=== PATIENT | male | born 1985 | race Hispanic/Latino ===

== ENCOUNTER 2023-08-03 10:29 | Emergency (ER) | payer OTHER, SELFPAY ==
[2023-08-03] MEDS ORDERED: Lidocaine 1% PF 5 ML VIAL ONE (10:52)
[2023-08-03] MEDS ORDERED: Boostrix 0.5 ML (Tdap) VIAL (>/=7 yrs of age) ONE (10:55)
[2023-08-03] MEDS ORDERED: HYDROcodone/Acetaminophen 5/325 mg Tablet ONE (10:55)
== END 2023-08-03 12:51 | disposition home or self-care (01) ==
LOC: ERS 10:29
DX: S09.90XA Unspecified injury of head, initial encounter (principal); S01.81XA Laceration without foreign body of other part of head, initial encounter; Z23 Encounter for immunization; W20.8XXA Other cause of strike by thrown, projected or falling object, initial encounter
CPT/HCPCS: 12013; 70450; 70486; 72125; 90471; 90715

== ENCOUNTER 2023-08-14 13:45 | Emergency (ER) | payer SELFPAY | END 2023-08-14 14:29 | disposition home or self-care (01) | LOC: ERS 13:45 | DX: S01.81XD Laceration without foreign body of other part of head, subsequent encounter (principal); W18.30XD Fall on same level, unspecified, subsequent encounter ==